=== PATIENT | male | born 1950 | race Caucasian/White ===

== ENCOUNTER 2020-06-10 09:37 | Inpatient (IN) | payer OTHER ==
[~2020-06-10] VITALS: Ht 177.8 cm; Wt 137.7 kg
--- NOTE | ~2020-06-10 | D ---
[facility] [place] [address] DISCHARGE SUMMARY Name: PHUONG DIETRICH Room #: 522B-B [facility] IN M.R.#: [id number] Admission: 06/10/20 Attend Phys: Mike Romero DO Discharge: 06/15/20 Date of : 46 Report #: [id number] THIS REPORT FOR: cc: ALEJADNRA - Family physician unknown FAM - Family physician unknown Mike Romero DO ~ THIS REPORT FOR: //name// CC: Mike ROBERTS unknown DATE OF SERVICE: 06/15/2020 INPATIENT PSYCHIATRIC DISCHARGE SUMMARY ATTENDING PHYSICIAN: Mike Romero DO. AUTOMATION AND CONTROLS MANAGER: Keyur Hawthorne MD DISCHARGE DIAGNOSES: Unspecified psychosis, which unfortunately became a terminal delirium state within hours of patient being discharged from the [facility]. The patient had in the Intensive Care Unit in [facility]. The hospitalist will do the official summary. In any event, the patient was emergently discharged for tachypnea and altered mental status and was subsequently intubated in the Intensive Care Unit. Discharge medications and such were per the hospitalist given the ____ response to emergency situation that unfolded. REASON FOR ADMISSION: On 06/10/2020, received as an interhospital transfer from [facility]. The patient had been admitted there about 5-6 days for altered mental status. The patient was sent with the urinary catheter in place and medication regime will be clarified with Dr. Pelon and he appeared to be delirious. HOSPITAL COURSE: The patient was admitted to Geriatric Psychiatry Unit. Unfortunately, the patient never made a cognitive or physical recovery, mostly just ____ a few brief periods in a Graciela chair. He required an indwelling Valentine catheter. Emergent discharge as above. Due to nature of this, no mental status exam can be performed. LABORATORY DATA: Significant laboratories this admission on the [facility] Unit. White count of 17,500, H and H 7.8 and 24.1, platelet count 429. On the day of discharge, PT 11.3, INR 1.1, APTT 33.2. He was on 60 mg p.o. a day of Lovenox. Urinalysis was suspicious, 2+ leukocyte esterase, few urine bacteria, also positive nitrites. Urine culture showed Proteus mirabilis, which grew out. Blood cultures are pending. [address] [address] DISCHARGE SUMMARY Name: PHUONG DIETRICH Room #: 522B-B [facility] IN M.R.#: [id number] Admission: 06/10/20 Attend Phys: Mike Romero, Discharge: 06/15/20 Date of : 46 Report #: [id number] PSYCHIATRIC MEDICATION REGIMEN: In [facility] Unit, it is Haldol 4 mg 3 times a day p.o. PROGNOSIS: For this patient is terminal. VITAL SIGNS: At time of discharge from [facility] Unit were temperature 37.4, pulse 104, respirations 23, BP 189/36, O2 sat 93%. By: [id number] Mike Romero, DO /nt
[2020-06-10 20:40] VITALS: BP 114/36
[2020-06-11 05:42] LABS: ABSOLUTE NEUTROPHILS 8.2 thou/uL (1.4-8.2); BASOPHILS 0.5 % (0.0-2.0); EOSINOPHILS 3.2 % (0.0-3.0); HEMATOCRIT 23.9 % (42.0-52.0); HEMOGLOBIN 7.8 gm/dL (14.0-18.0); LYMPHOCYTES 13.8 % (24.0-44.0); MCH 27.5 pg (26.0-34.0); MCHC 32.4 g/dL (28.0-37.0); MCV 84.8 fL (80.0-100.0); MONOCYTES 8.7 % (1.0-8.0); PLATELET COUNT 437 thou/uL (150-400); POLYS 73.8 % (36.0-66.0); RBC 2.82 mil/uL (4.50-6.00); RDW 15.9 % (10.5-14.5); WBC 11.1 thou/uL (4.0-11.0)
[2020-06-11 06:00] LABS: CALCIUM 9.4 mg/dL (8.5-10.1); CREATININE 1.9 mg/dL (0.7-1.3); MAGNESIUM 1.7 mg/dL (1.8-2.4); POTASSIUM 4.8 mmol/L (3.5-5.1)
[2020-06-11 09:16] VITALS: BP 144/81
[2020-06-12 05:30] VITALS: BP 130/54
[2020-06-12 13:29] VITALS: BP 131/62
--- NOTE | 2020-06-12 14:56 | HC ---
[facility] [place] [address] CONSULTATION Name: PHUONG DIETRICH Room #: 522B-B ADM IN M.R.#: [id number] Admission: 06/10/20 Attend Phys: Mike Romero DO Discharge: Date of : 46 Report #: [id number] THIS REPORT FOR: cc: ALEJANDRA - Family physician unknown ALEJANDRA - Family physician unknown Lenny Rojo MD ~ CC: Mike ROBERTS unknown DATE OF SERVICE: 06/11/2020 WOUND CARE CONSULTATION PERSONAL PHYSICIAN: None. CHIEF COMPLAINT: Gluteal ulcerations. HISTORY OF PRESENT ILLNESS: This is a 70-year-old white male who is currently admitted to the Psychiatric Behavioral Unit at [facility] for persistent confusion. Upon admission, the patient was noted to have some excoriation noted in his gluteal region, which we have been asked to assist in the care. The patient himself is an extremely poor historian. He is unable to even converse, in speaking __ during my exam. Nursing staff deny any other associated wounds except for a small what appears to be a vascular ulcer on the medial aspect of the left transmetatarsal amputation site. The patient also has a small dry eschar on his right great toe. PAST MEDICAL HISTORY: Significant for peripheral vascular disease with left transmetatarsal amputation, peripheral neuropathy, diabetes mellitus, morbid obesity, hypertension, severe debility. CURRENT MEDICATIONS: Multiple, I reviewed the patient's medication list. DRUG ALLERGIES: INCLUDE GLIPIZIDE, CEFUROXIME, ZOLPIDEM, AND TAZOBACTAM/PIPERACILLIN. SOCIAL HISTORY: The patient has a history of smoking, but quit several years ago. Supposedly, the patient prior to most recent hospitalization was living alone. FAMILY HISTORY AND REVIEW OF SYSTEMS: Unobtainable because of the patient's significantly altered mental status. PHYSICAL EXAMINATION: VITAL SIGNS: Stable. The patient is afebrile. GENERAL: This is an awake, but not alert or communicative white male who [facility] [address] [place] [address] CONSULTATION Name: PHUONG DIETRICH Room #: 522B-B ADM IN .R.#: [id number] Admission: 06/10/20 Attend Phys: Mike Romero DO Discharge: Date of : 46 Report #: [id number] appears chronically ill. HEENT: Normocephalic, atraumatic. Mucous membranes are dry. Pupils are round. NECK: Supple. LUNGS: Clear. HEART: Regular. ABDOMEN: Obese, soft, nontender. EXTREMITIES: Evaluation of sacrococcygeal region reveals no acute ulceration; however, on the gluteal region, there is significant amount of moisture-associated dermatitis with excoriation but no signs of cellulitis. The patient moves all extremities without difficulty. Evaluation of the left foot reveals a transmetatarsal amputation with dry vascular eschar on the medial aspect without signs of infection. On the right great toe, there is a small dry eschar without signs of infection. Bilateral heels are intact. NEUROLOGIC: Cranial nerves 2-12 grossly intact. Motor and sensory appear to be grossly intact. LABORATORY DATA: White count is 11.1 and hemoglobin 7.8. BUN is 47 and creatinine 1.9. C-reactive protein was 149.5. IMPRESSION: 1. Moisture-associated dermatitis to the sacrococcygeal and gluteal region. 2. Confusion. Workup is undergoing. 3. Diabetes mellitus. 4. Chronic ulcer, right great toe without signs of infection. 5. Chronic ulcer, left medial transmetatarsal amputation site. 6. Peripheral vascular disease. 7. Morbid obesity. 8. Generalized debility. We will place Betadine to the left transmetatarsal amputation site in the right great toe site daily. We will start Z-guard protective cream to the sacrococcygeal and gluteal area twice daily and p.r.n. We will make sure he utilizes physical and occupational therapy as possible for strengthening. We will continue all other current medications. Psychiatry is following the patient at this time for his confusion and agitation. I appreciate ability consult. The patient, we will continue to follow. <ELECTRONICALLY SIGNED> By: Lenny Rojo MD 06/12/20 1456 1638 29 Lenny Rojo MD /nt
[2020-06-12 19:51] VITALS: BP 100/42
[2020-06-12 21:43] VITALS: BP 100/72
[2020-06-13 06:20] LABS: HEMATOCRIT 24.2 % (42.0-52.0); HEMOGLOBIN 7.6 gm/dL (14.0-18.0)
[2020-06-13 07:35] VITALS: BP 105/50
[2020-06-13 07:45] LABS: FOLIC ACID 51.8 ng/mL (8.6-58.9)
--- NOTE | 2020-06-13 16:55 | H ---
[facility] [place] [address] HISTORY AND PHYSICAL Name: EFRAIN MCRAE Room #: 522B-B ADM IN M.R.#: [id number] Admission: 06/10/20 Attend Phys: Mike Romero DO Discharge: Date of : 46 Report #: [id number] THIS REPORT FOR: cc: ALEJANDRA - Family physician unknown FAM - Family physician unknown Mike Romero DO ~ CC: Mike ROBERTS unknown DATE OF SERVICE: 06/10/2020 INPATIENT PSYCHIATRIC EVALUATION ATTENDING PHYSICIAN: Mike Romero DO. SALESPERSON SHOES: Keyur Hawthorne MD SOURCES OF INFORMATION: Medical records including H and P from [facility], brief interview with the patient. Of note, the patient is obviously demented, very poor historian. Not oriented. Additionally, he has a DPOA which I have not had a chance to call yet, but we will add that to tomorrow's note, information that was not gathered. CHIEF COMPLAINT: Agitation, behavioral disturbance. HISTORY OF PRESENT ILLNESS: This is a 70-year-old male that was originally admitted on 06/05/2020 at [facility] in [place], [place]. Dr. Ohara was the main hospitalist. Information is, he is an outpatient of Dr. Salinas Bah. The patient has become chronically ill and additionally his has been ill as well with increased decline in recent years. The patient has been living alone and unable to care for himself. He reportedly was admitted recently to [facility] with altered mental status and fever of unclear etiology. Nephrology team was involved. His creatinine level increased to 1.4. ID was also involved on admission to workup for fever. He was COVID-19 negative and all microbiology returned unremarkable. There is concern for Bartonella due to cat scratches on his arms as markers returned negative. The patient was discharged yesterday afternoon to rehab and they returned him to [facility] given increased confusion and inability to work with him. He did not have a fall, but they were concerned given his gait instability. The patient has several digits amputated on his left foot. The patient at [facility] noted to be slightly confused, poor historian as he was with me. His complaint was, he needed to go to the bathroom at [facility]. He denies any pain anywhere. He was unable to tell the staff at [facility] why he was unable to get around at home. The patient has a long history of peripheral vascular disease, status post partial amputation of his left foot. He does wear fitted shoe. Vascular studies the prior week were notable for open flow in the [address] [address] HISTORY AND PHYSICAL Name: EFRAIN MCRAE Room #: 522B-B ADM IN M.R.#: [id number] Admission: 06/10/20 Attend Phys: Mike Romero DO Discharge: Date of : 46 Report #: [id number] left leg and moderate to high-grade right SFA disease. The plan was to have him follow up with vascular as an outpatient. The patient was anemic, it is unclear baseline. Gastroenterology to assess him during the last admission, but did not find him to be a good candidate for further evaluation. The patient is known to have a small T12 lytic lesion, has not had any further assessment. PAST MEDICAL HISTORY: Includes morbid obesity with reported 100-pound weight loss in the last year or so. He reported "he quit eating junk food." He has type 2 diabetes mellitus, A1c is 7.4. Past admission, peripheral neuropathy, peripheral vascular disease, apparently does have adequate blood flow to both feet. He has significant decubitus ulcers in various locations, anemia of unclear etiology, acute on chronic stage III renal disease, hypertension. SOCIAL HISTORY: The patient is . is very frail and debilitated as she is on hospice living at her son's home. The patient quit smoking some years ago. He does not take alcohol or illicit drugs. Currently lives alone. He does not have a decision maker, but he does have 3 sons and this is incorrect. He does have DPOA named Efrain Mcrae, with different middle name. Looks like he was worked up for multiple myeloma, but I think that workup came back negative. He had a psychiatric screening done on purpose, psychiatrist actually saw him. I have noted he had a CT head and cervical spine. CT head showed no acute intracranial hemorrhage, no mass effect, midline shift or hydrocephalus. This was on 06/04/2020. CT cervical spine showed no acute fracture, significant limited evaluation below C5. LABORATORY DATA: Laboratories from [facility] from 06/06/2020. White count 11.1, H and H 8.0 and 24.6, platelet count 390. Electrolytes: Sodium 144, potassium 3.5, chloride 107, bicarbonate 26, anion gap 11, BUN 54, creatinine 2.2, estimated GFR 29.6, glucose 180, calcium 8.9. Iron level 17, TIBC 127, iron sat 13%. TIBC is actually low. Iron is absolutely low as well. AST 27, ALT 31, alkaline phosphatase 96. CRP 135.3, albumin 2.0. TSH 2.916. It does not look like he was transfused, diagnosed with delirium. He was initially given Seroquel and that was discontinued, started on 2.5 mg Haldol twice a day and Dr. Emery looks like was the consulting psychiatrist. MEDICATIONS: I have noted the discharge medications from [facility] had to be especially reviewed with Dr. Ohara. They are potassium chloride 3 mEq p.o. daily with breakfast, amlodipine 5 mg p.o. daily for hypertension, hydralazine 50 mg p.o. 3 times a day, multivitamin p.o. daily, budesonide nebulizer 0.5 mg inhaled twice a day, albuterol sulfate 2.5 mg q. 4 p.r.n. shortness of breath, iron polysaccharide complex 150 mg p.o. daily, Coreg 25 mg p.o. b.i.d. with meals, aspirin 81 mg p.o. daily, senna docusate 2 tabs each p.o. b.i.d., insulin glargine 45 units subQ at bedtime, vitamin D3 2000 International Units daily, atorvastatin 20 mg p.o. daily, Lasix 20 mg p.o. b.i.d., lisinopril 40 mg p.o. daily. All antihypertensives have parameters of 100 mmHg systolic, to give him [facility] [address] [place] [address] HISTORY AND PHYSICAL Name: EFRAIN MCRAE Room #: 522B-B ADM IN M.R.#: [id number] Admission: 06/10/20 Attend Phys: Mike Romero DO Discharge: Date of : 46 Report #: [id number] pantoprazole 40 mg p.o. daily. ALLERGIES: The patient's allergies are known to be CEFUROXIME CAUSING A RASH. PIPERACILLIN CAUSING A RASH, TAZOBACTAM CAUSING A RASH, ZOLPIDEM CAUSING HALLUCINATIONS, GLIPIZIDE CAUSING PHOTOSENSITIVITY. Apparently, behaviors documented at [facility] as restless, pulling out his IV, asking for another beer. Also, made comments please, please help make them leave me alone. He complained he had pain in his head from hitting on the chimney, truck is in the field, and going to [place]. The patient is able to be reoriented at times. So, these were the comments from the nursing staff at [facility]. On my examination, he is a well-developed, quite ill, has Valentine catheter intact, which I did not realized, disheveled. Gait not tested. MENTAL STATUS EXAMINATION: This is a well-developed, obese, ill-appearing male, appearing his stated age. Attention impaired. Concentration impaired. Speech was slightly increased rate. Thought process nonlinear. Regarding his speech and thought content he had a Wernicke's type aphasia was noted where he would respond, otherwise fluently, but it did not make sense. He is only oriented to person. No self-harm behaviors observed and not able to well question for auditory, visual, or tactile hallucinations or intent to harm self or others. Memory was grossly impaired. Insight impaired, judgment impaired. Fund of knowledge well below average. FORMULATION: A 70-year-old male sent over from [facility] with a history of dementia and delirium due to multiple factors. DIAGNOSES: Unspecified Psychosis r/o Major neurocognitive disorder due to multiple etiologies with behavioral disturbance. The patient has multiple medical problems including chronic renal failure, type 2 diabetes mellitus, peripheral neuropathy, peripheral vascular disease, decubitus ulcers, urinary retention, status post Valentine placement. PLAN: Evaluate, stabilize, obtain collateral. Dr. Hawthorne is consulted for medical needs. I went ahead and started the patient on 0.4 mg of Flomax b.i.d. I will defer to hospitalist, want to attempt a voiding trial and pulled the Valentine. We will defer calling his DPOA until tomorrow and the nursing staff have already done that. The patient's medications, I started on here are the same as the discharge list. I refined with Dr. Gunner Ohara. I learned from talkign to sosn patient was well as of Jun 04, so I have order dementia labs b12 folate syphillis ab and vitamin d level. Time spent on this case is greater than 60 minutes, greater than 50% of that [facility] [address] [place] [address] HISTORY AND PHYSICAL Name: EFRAIN MCRAE Room #: 522B-B ADM IN M.R.#: [id number] Admission: 06/10/20 Attend Phys: Mike Romero DO Discharge: Date of : 46 Report #: [id number] time was on counseling and coordination of care with various people involved including nurse Devine at [facility], Dr. Gunner Ohara, hospitalist Keyur Hawthorne, here at [facility]. ESTIMATED LENGTH OF STAY: 10-14 days. STRENGTHS: He is insured. He has a DPOA. WEAKNESSES: Multiple morbidities history of dementia. REVIEW OF SYSTEMS: We were not able to be reasonably obtained today. <ELECTRONICALLY SIGNED> By: Mike Romero DO 06/13/20 1655 2135 2240 Mike Romero DO /nt
[2020-06-14 13:09] LABS: ABSOLUTE NEUTROPHILS 10.8 thou/uL (1.4-8.2); BASOPHILS 0.4 % (0.0-2.0); EOSINOPHILS 1.4 % (0.0-3.0); HEMATOCRIT 24.9 % (42.0-52.0); LYMPHOCYTES 7.9 % (24.0-44.0); MCH 27.1 pg (26.0-34.0); MCV 84.5 fL (80.0-100.0); MONOCYTES 6.6 % (1.0-8.0); PLATELET COUNT 456 thou/uL (150-400); POLYS 83.7 % (36.0-66.0); RBC 2.95 mil/uL (4.50-6.00); RDW 15.2 % (10.5-14.5); WBC 12.9 thou/uL (4.0-11.0)
[2020-06-14 13:26] LABS: CALCIUM 9.2 mg/dL (8.5-10.1); CREATININE 3.4 mg/dL (0.7-1.3); POTASSIUM 5.5 mmol/L (3.5-5.1)
[2020-06-14 15:23] LABS: URINE BILIRUBIN 1+ (Negative); URINE BLOOD 3+ (Negative); URINE CLARITY CLOUDY; URINE COLOR RED; URINE GLUCOSE-RANDOM* NEGATIVE (Negative); URINE KETONES NEGATIVE (Negative); URINE PROTEIN (DIPSTICK) 2+ (Negative); URINE SPECIFIC GRAVITY 1.015 (1.005-1.035)
[2020-06-14 15:28] LABS: ICTOTEST (BILI CONFIRMATORY) Negative (Negative); URINE LEUKOCYTES-REFLEX 2+ (Negative); URINE NITRITE-REFLEX POSITIVE (Negative)
[2020-06-14 15:32] LABS: CASTS None Seen /LPF (None Seen); CRYSTALS None Seen /LPF (None Seen); SQUAMOUS 0-3 Few /LPF (0-3); URINE RBC >20 Many /HPF (0-2)
[2020-06-14 15:33] LABS: BACTERIA-REFLEX 1-9 Few /HPF (None Seen)
[2020-06-14 15:34] LABS: URINE WBC-REFLEX 0-5 Rare /HPF (0-5)
[2020-06-14 20:22] VITALS: BP 117/54
[2020-06-15 06:37] LABS: HEMATOCRIT 24.1 % (42.0-52.0); HEMOGLOBIN 7.8 gm/dL (14.0-18.0); MCH 26.9 pg (26.0-34.0); MCHC 32.2 g/dL (28.0-37.0); MCV 83.5 fL (80.0-100.0); RBC 2.89 mil/uL (4.50-6.00); RDW 15.5 % (10.5-14.5); WBC 17.5 thou/uL (4.0-11.0)
[2020-06-15 06:50] LABS: ABSOLUTE RETIC COUNT 0.054 10^6/uL; OBSERVED RETIC COUNT 1.85 % (0.6-2.6)
[2020-06-15 06:57] LABS: APTT 33.2 Seconds (24.5-32.8); INR 1.1; PROTIME 11.3 Seconds (9.3-11.4)
[2020-06-15 07:04] LABS: % SATURATION 10 % (20-39); ALBUMIN 2.1 g/dL (3.4-5.0); CALCIUM 9.3 mg/dL (8.5-10.1); CREATININE 3.6 mg/dL (0.7-1.3); IRON 15 ug/dL (65-175); MAGNESIUM 1.5 mg/dL (1.8-2.4); TIBC 151 ug/dL (250-450); TOTAL BILIRUBIN 0.4 mg/dL (0.2-1.0); TOTAL PROTEIN 7.2 g/dL (6.4-8.2)
[2020-06-15 08:49] VITALS: BP 89/36
--- NOTE | 2020-06-16 07:44 | EKG ---
[facility] [place] [address] ELECTROCARDIOGRAM REPORT Name: PHUONG DIETRICH Room #: [facility] DIS IN M.R.#: [id number] Admission: 06/10/20 Attend Phys: Mike Romero DO Discharge: 06/15/20 Date of : 46 Report #: [id number] THIS REPORT FOR: cc: FAM - Family physician unknown FAM - Family physician unknown Harpreet Kaur MD [facility] ~ THIS REPORT FOR: //name// 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: Juan Ramon LAWSON : 1950 Requested By: Phillip Rolle Order Number: [id number] MD: Harpreet Kaur Measurements Intervals [place] Rate: 77 P: 51 [place]: 195 QRS: 45 QRSD: 92 T: 47 QT: 368 QTc: 417 Interpretive Statements Sinus rhythm No significant abnormality Baseline wander in lead(s) V4 No previous ECG available for comparison Electronically Signed On 06-16-2020 7:43:54 CDT by Harpreet Kaur [email or web address] <ELECTRONICALLY SIGNED> By: Harpreet Kaur MD, [facility] 06/16/20 0743 1636 1636 Harpreet Kaur MD, [facility] /EPI
[2020-06-16 19:07] LABS: SYPHILIS AB Non Reactive (Non Reactive)
== END 2020-06-15 17:43 | disposition short-term general hospital (02) | DRG 884 ==
LOC: SBH
PROVIDERS: Internal Medicine; Nurse Practitioner; Nurse Practitioner Family; ADMIT Psychiatry & Neurology Psychiatry; ATTEND Psychiatry & Neurology Psychiatry
DX: F03.91 Unspecified dementia, unspecified severity, with behavioral disturbance (principal); N17.9 Acute kidney failure, unspecified; N18.3 Chronic kidney disease, stage 3 (moderate); J96.02 Acute respiratory failure with hypercapnia; J96.01 Acute respiratory failure with hypoxia; G92 Toxic encephalopathy; Z68.41 Body mass index [BMI] 40.0-44.9, adult; N39.0 Urinary tract infection, site not specified; E66.01 Morbid (severe) obesity due to excess calories; E11.51 Type 2 diabetes mellitus with diabetic peripheral angiopathy without gangrene; D63.1 Anemia in chronic kidney disease; E11.22 Type 2 diabetes mellitus with diabetic chronic kidney disease; R53.81 Other malaise; L89.899 Pressure ulcer of other site, unspecified stage; R33.9 Retention of urine, unspecified; I95.9 Hypotension, unspecified; B96.4 Proteus (mirabilis) (morganii) as the cause of diseases classified elsewhere; R00.1 Bradycardia, unspecified; G47.33 Obstructive sleep apnea (adult) (pediatric); S00.03XA Contusion of scalp, initial encounter; X58.XXXA Exposure to other specified factors, initial encounter; Z60.2 Problems related to living alone; Z87.891 Personal history of nicotine dependence; Z88.8 Allergy status to other drugs, medicaments and biological substances; Z89.422 Acquired absence of other left toe(s); Y93.89 Activity, other specified; Y92.89 Other specified places as the place of occurrence of the external cause; Y99.8 Other external cause status
CPT/HCPCS: 10880

== ENCOUNTER 2020-06-15 17:04 | Inpatient (IN) | payer OTHER ==
[2020-06-15] VITALS (23 sets, daily range): BP systolic 41–222; BP diastolic 10–179
[2020-06-15 17:26] LABS: BE(vivo) -7.5 mmol/L (-2 to +3); HCO3 17.4 mmol/L (22.0-26.0); PCO2 32.6 mmHg (35.0-45.0); PO2 444.4 mmHg (80.0-100.0); pH 7.345 (7.360-7.450); sO2 99.8 % (92.0-98.0)
[2020-06-15 17:26] LABS: HEMATOCRIT 21.6 % (42.0-52.0); MCH 27.7 pg (26.0-34.0); MCHC 32.4 g/dL (28.0-37.0); MCV 85.6 fL (80.0-100.0); RBC 2.52 mil/uL (4.50-6.00)
[2020-06-15 17:32] LABS: ANION GAP 13 mmol/L (7-16); BUN 73 mg/dL (7-18); CALCIUM 8.4 mg/dL (8.5-10.1); CHLORIDE 104 mmol/L (98-107); CO2 20 mmol/L (21-32); GLUCOSE 131 mg/dL (74-106); SODIUM 137 mmol/L (136-145)
[2020-06-15 17:41] LABS: INR 1.2
[2020-06-15 17:49] LABS: D-DIMER 26.25 ug/mLFEU (0.19-0.50)
[2020-06-15 17:51] LABS: HEMATOCRIT 23.2 % (42.0-52.0); HEMOGLOBIN 7.3 gm/dL (14.0-18.0); MCHC 31.6 g/dL (28.0-37.0); MCV 85.6 fL (80.0-100.0); RBC 2.71 mil/uL (4.50-6.00); RDW 15.7 % (10.5-14.5)
[2020-06-15 17:55] LABS: PLATELET COUNT 420 thou/uL (150-400); WBC 34.5 thou/uL (4.0-11.0)
[2020-06-15 18:01] LABS: APTT 29.6 Seconds (24.5-32.8)
[2020-06-15 18:02] LABS: ALBUMIN 1.8 g/dL (3.4-5.0); SGOT 45 U/L (15-37); SGPT 27 U/L (30-65); TOTAL BILIRUBIN 0.4 mg/dL (0.2-1.0); TOTAL PROTEIN 5.8 g/dL (6.4-8.2)
[2020-06-15 18:07] LABS: FIBRINOGEN 597.9 mg/dL (210-360)
[2020-06-15 18:17] LABS: TROPONIN-I <0.06 ng/mL (<0.06)
[2020-06-15 18:23] LABS: URINE BILIRUBIN NEGATIVE (Negative); URINE BLOOD 3+ (Negative); URINE COLOR YELLOW; URINE GLUCOSE-RANDOM* NEGATIVE (Negative); URINE KETONES NEGATIVE (Negative); URINE PROTEIN (DIPSTICK) TRACE (Negative); URINE UROBILINOGEN 0.2 E.U./dl (0.2-1.0)
[2020-06-15 18:25] LABS: URINE LEUKOCYTES-REFLEX 3+ (Negative); URINE NITRITE-REFLEX POSITIVE (Negative)
[2020-06-15 18:25] LABS: ABSOLUTE NEUTROPHILS 32.4 thou/uL (1.4-8.2)
[2020-06-15 18:26] LABS: URINE CLARITY SL HAZY
[2020-06-15 18:30] LABS: SQUAMOUS None Seen /LPF (0-3); URINE RBC >20 Many /HPF (0-2); URINE WBC-REFLEX 6-15 Few /HPF (0-5)
[2020-06-15 18:31] LABS: BACTERIA-REFLEX >30 Many /HPF (None Seen); CASTS None Seen /LPF (None Seen); CRYSTALS None Seen /LPF (None Seen)
--- NOTE | 2020-06-15 18:34 | 2DMMODE ---
[facility] [place] [address] 2 D/M-MODE ECHOCARDIOGRAM Name: PHUONG DIETRICH Room #: 244-P ADM IN M.R.#: [id number] Admission: 06/15/20 Attend Phys: Keyur Hawthorne MD Discharge: Date of : 46 Report #: [id number] THIS REPORT FOR: cc: FAM - Family physician unknown FAM - Family physician unknown Aram Balbuena MD ~ APPROVED REPORT Study performed: 06/15/2020 17:42:39 EXAM: Limited 2D, Doppler, and color-flow Echocardiogram Patient Location: ICU Room #: 244 Status: STAT-call center assistant BSA: 2.41 HR: 104 bpm BP: 89/36 mmHg Rhythm: Tachycardia Other Information Study Quality: Poor Technically limited study due to morbidly obese, flat on back, on vent. Indications STAT limited echo for Right heart size and function, LV function, rule out pericardial effusion. Arrhythmia, post code. Tricuspid Valve TR Peak Omar.: 2.45 m/s RAP Estimate: 5.00 mmHg TR Peak Gr.: 24.00 mmHg PA Pressure: 29.00 mmHg Left Ventricle The left ventricle is normal size. Left ventricular systolic function is normal. LVEF is 55%. Right Ventricle The right ventricle is normal size. The right ventricular systolic function is normal. Atria Left atrium is not well visualized. The right atrium size is normal. [facility] [place] [address] 2 D/M-MODE ECHOCARDIOGRAM Name: PHUONG DIETRICH Room #: 244-P ADM IN M.R.#: [id number] Admission: 06/15/20 Attend Phys: Keyur Hawthorne MD Discharge: Date of : 46 Report #: [id number] Aortic Valve The aortic valve is not well visualized. Mitral Valve The mitral valve is normal in structure. Tricuspid Valve The tricuspid valve is normal in structure. Trace tricuspid regurgitation. Estiamted PAP is 30mmHg. Great Vessels IVC is normal in size and collapses >50% with inspiration. Pericardium There is no pericardial effusion. <Conclusion> The left ventricle is normal size. LVEF is 55%. Left atrium is not well visualized but appears within normal limits The aortic valve is not well visualized. The mitral valve is normal in structure. There is no pericardial effusion. The right ventricle is normal size. The right ventricular systolic function is normal. <ELECTRONICALLY SIGNED> By: Aram Balbuena MD 06/15/201832 32 32 Aram Balbuena MD /INF
--- NOTE | 2020-06-16 07:44 | EKG ---
[facility] [place] [address] ELECTROCARDIOGRAM REPORT Name: PHUONG DIETRICH Room #: 244-P [facility] IN M.R.#: [id number] Admission: 06/15/20 Attend Phys: Keyur Hawthorne MD Discharge: 06/15/20 Date of : 46 Report #: [id number] THIS REPORT FOR: cc: FAM - Family physician unknown FAM - Family physician unknown Harpreet Kaur MD [facility] THIS REPORT FOR: //name// [facility] Test Date: 2020-06-15 Test Time: 17:14:05 Pat Name: PHUONG DIETRICH Department: Room: Gender: Pointer Helper: Juan Ramon LAWSON : 1950 Requested By: Phillip Rolle Order Number: [id number] MD: Harpreet Kaur Measurements Intervals [place] Rate: 95 P: 57 NE: 192 QRS: 66 QRSD: 88 T: 63 QT: 359 QTc: 452 Interpretive Statements Sinus rhythm No significant abnormality Baseline wander in lead(s) II,III,aVL,aVF Compared to ECG 06/15/2020 16:36:21 No significant changes Electronically Signed On 06-16-2020 7:44:24 CDT by Harpreet Kaur [email or web address] <ELECTRONICALLY SIGNED> By: Harpreet Kaur MD, [facility] 06/16/20 0744 1714 1714 Harrpeet Kaur MD, [facility] /EPI
--- NOTE | 2020-06-16 07:47 | EKG ---
[facility] [place] [address] ELECTROCARDIOGRAM REPORT Name: PHUONG DIETRICH Room #: 244-P DIS IN M.R.#: [id number] Admission: 06/15/20 Attend Phys: Keyur Hawthorne MD Discharge: 06/15/20 Date of : 46 Report #: [id number] THIS REPORT FOR: cc: FAM - Family physician unknown FAM - Family physician unknown Harpreet Kaur MD [facility] THIS REPORT FOR: //name// [facility] Test Date: 2020-06-15 Test Time: 20:02:29 Pat Name: PHUONG DIETRICH Department: Room: 244 Gender: M Stain Remover: Juan Ramon LAWSON : 1950 Requested By: Omid Beckett Order Number: [id number] MD: Harpreet Kaur Measurements Intervals [place] Rate: 111 P: 122 MD: 152 QRS: 72 QRSD: 106 T: 66 QT: 350 QTc: 476 Interpretive Statements Sinus tachycardia Early R wave progression Borderline prolonged QT interval Compared to ECG 06/15/2020 17:14:05 QT interval has lengthened Electronically Signed On 06-16-2020 7:47:14 CDT by Harpreet Kaur [email or web address] <ELECTRONICALLY SIGNED> By: Harpreet Kaur MD, [facility] 06/16/20 0747 01 01 Harpreet Kaur MD, [facility] /EPI
== END 2020-06-15 21:32 | DRG 871 ==
LOC: ICU 17:04
PROVIDERS: Hospitalist; ADMIT Internal Medicine; ATTEND Internal Medicine
PROC: 02HV33Z Insertion of Infusion Device into Superior Vena Cava, Percutaneous Approach (ICD-10-PCS; principal; 2020-06-15)
PROC: 5A1935Z Respiratory Ventilation, Less than 24 Consecutive Hours (ICD-10-PCS; principal; 2020-06-15)
PROC: 0BH18EZ Insertion of Endotracheal Airway into Trachea, Via Natural or Artificial Opening Endoscopic (ICD-10-PCS; principal; 2020-06-15)
DX: A41.9 Sepsis, unspecified organism (principal); J96.01 Acute respiratory failure with hypoxia; G92 Toxic encephalopathy; N17.9 Acute kidney failure, unspecified; N39.0 Urinary tract infection, site not specified; B96.4 Proteus (mirabilis) (morganii) as the cause of diseases classified elsewhere; D64.9 Anemia, unspecified; I95.9 Hypotension, unspecified; G47.33 Obstructive sleep apnea (adult) (pediatric); E11.22 Type 2 diabetes mellitus with diabetic chronic kidney disease; I12.9 Hypertensive chronic kidney disease with stage 1 through stage 4 chronic kidney disease, or unspecified chronic kidney disease; L89.899 Pressure ulcer of other site, unspecified stage; G47.10 Hypersomnia, unspecified; N18.3 Chronic kidney disease, stage 3 (moderate); E11.51 Type 2 diabetes mellitus with diabetic peripheral angiopathy without gangrene; R65.20 Severe sepsis without septic shock; E66.01 Morbid (severe) obesity due to excess calories; Z89.422 Acquired absence of other left toe(s); Z88.8 Allergy status to other drugs, medicaments and biological substances; Z87.891 Personal history of nicotine dependence
CPT/HCPCS: 10078